=== PATIENT | male | born 1970 ===

== ENCOUNTER 2023-08-25 06:40 | Day surgery (SDC) | payer BC ==
[~2023-08-25] VITALS: Ht 185.4 cm; Wt 94.8 kg
[~2023-08-25 06:40] MED LIST: LR 1,000 ML IV SCH
[2023-08-25 07:07] VITALS: BP 145/72; PULSE 55; TEMP 97.6
[2023-08-25] MEDS ORDERED: dexAMETHasone 10 MG/ML VIAL ONE (07:25)
[2023-08-25] MEDS ORDERED: fentaNYL 50 MCG/ML 2 ML VIAL ONE (07:25)
[2023-08-25] MEDS ORDERED: Lidocaine PF 2% (20 MG/ML) 5 ML VIAL ONE (07:25)
[2023-08-25] MEDS ORDERED: Ondansetron 4 MG/2 ML VIAL ONE (07:25)
[2023-08-25] MEDS ORDERED: ZOFRAN 4MG T4 MG/TAB PO (07:47)
[2023-08-25] MEDS ORDERED: ZOFRAN ODT4 MG PO (07:48)
[2023-08-25] MEDS ORDERED: NORCO 325 MG-51 TAB PO (07:48)
[2023-08-25] MEDS ORDERED: NORCO 325 MG-101 TAB PO (07:49)
[2023-08-25] MEDS ORDERED: ADDERALL15 MG PO (07:50)
[2023-08-25] MEDS ORDERED: COMBIGAN 0.2%-0.5 ML OD (07:51)
[2023-08-25] MEDS ORDERED: LEXAPRO20 MG PO (07:51)
[2023-08-25] MEDS ORDERED: ZESTRIL 10MG10 MG PO (07:52)
[2023-08-25] MEDS ORDERED: PREDFORTE5ML (07:52)
[2023-08-25] MEDS ORDERED: DESYREL 50MG50 MG PO (07:53)
[2023-08-25] MEDS ORDERED: FLOMAX 0.40.4 MG/CAP PO (07:53)
[2023-08-25] MEDS ORDERED: Iohexol 350 - 100 ML VIAL URETER -L ONE (08:30)
[2023-08-25] MEDS ORDERED: Lidocaine 2% (20 MG/ML) 20 ML UROJET UR ONE (08:30)
[2023-08-25] MEDS ORDERED: fentaNYL 50 MCG/ML 1 ML SYRINGE/VIAL [PACU/SDC ONLY] IV PRN (09:00)
[2023-08-25] MEDS ORDERED: Naloxone 0.4 MG/ML VIAL IV PRN (09:00)
[2023-08-25] MEDS ORDERED: hydrALAZINE 20 MG/ML 1 ML VIAL IV PRN (09:00)
[2023-08-25] MEDS ORDERED: Meperidine 50 MG/ML 1 ML VIAL IV PRN (09:00)
[2023-08-25] MEDS ORDERED: Ketorolac 15 MG/ML VIAL IV PRN (09:00)
[2023-08-25] MEDS ORDERED: Ondansetron 4 MG/2 ML VIAL IV PRN ×2 (09:00)
[2023-08-25] MEDS ORDERED: Acetaminophen 325 MG TAB PO PRN (09:00)
[2023-08-25] MEDS ORDERED: Hyoscyamine 0.125 MG Sublingual TAB SL PRN (09:00)
[2023-08-25] MEDS ORDERED: HYDROmorphone 1 MG/1 ML SYRINGE [PACU/SDC ONLY] IV PRN (09:00)
[2023-08-25 09:25] VITALS: BP 137/79; PULSE 58; TEMP 97.5
[2023-08-25 09:40] VITALS: BP 129/74; PULSE 58
--- NOTE | 2023-08-25 09:50 | NUR ---
0925 RETURNS TO ROOM 3 PER CART. AWAKE, ALERT. RESP UNLABORED. HOB ELEVATED 50 DEGREES. VITAL SIGNS OBTAINED. ABD SOFT, DENIES PAIN OR URINARY URGENCY. CALL LIGHT AT SIDE. IN ROOM. 0935 TOLERATES PO WATER WITHOUT NAUSEA. DISCHARGE INSTRUCTIONS REVIEWED. PATIENT VERBALIZES UNDERSTANDING. COPY PROVIDED IN DISCHARGE FOLDER 5645 AFTER IV DC'D, PATIENT SITS ON EDGE OF BED. DRESSES SELF, THEN AMBULATES TO BATHROOM WITH STANDBY ASSIST. ADMITS TO VOIDING WITHOUT DIFFICULTY, LIGHT PINK URINE
[2023-08-25] MEDS ORDERED: Acetaminophen 500 MG TAB PO SCH (09:52)
== END 2023-08-25 09:52 | disposition home or self-care (01) ==
LOC: SDCO 06:40
DX: N20.1 Calculus of ureter (principal); G47.33 Obstructive sleep apnea (adult) (pediatric); Z87.891 Personal history of nicotine dependence; Z80.42 Family history of malignant neoplasm of prostate
CPT/HCPCS: C1769; J0690; J1100; J2405; J2704; J3010; J7120; Q9967